=== PATIENT | female | born 1990 | race Caucasian/White ===

== ENCOUNTER → 2018-12-03 | Outpatient (CLI) | payer OTHER ==
[~2018-12-03] MED LIST: GADOBUTROL 10 ML VIAL IVP ONE
== END ==
LOC: FIMAGING 06:16
PROVIDERS: ATTEND Physician Assistant Medical
DX: R94.02 Abnormal brain scan (principal); N36.44 Muscular disorders of urethra; R20.0 Anesthesia of skin; R29.898 Other symptoms and signs involving the musculoskeletal system
CPT/HCPCS: A9585

== ENCOUNTER → 2018-12-05 | Outpatient (CLI) | payer OTHER | LOC: FIMAGING 06:15 | PROVIDERS: ATTEND Physician Assistant Medical | DX: N36.44 Muscular disorders of urethra (principal); R20.0 Anesthesia of skin; R29.898 Other symptoms and signs involving the musculoskeletal system; R53.1 Weakness; N31.9 Neuromuscular dysfunction of bladder, unspecified | CPT/HCPCS: A9585 ==